=== PATIENT | female | born 1965 | race African-American/Black ===

== ENCOUNTER 2025-08-20 19:30 | Emergency (ER) | payer MEDICAID ==
[~2025-08-20] VITALS: Ht 157.5 cm; Wt 86.4 kg
[~2025-08-20 19:30] MED LIST: CARI-277 PO; MORP1TAB14 PO; NOR10T PO; ZOLP10TA PO
[2025-08-20 19:32] VITALS: BP 148/86; PULSE 104; RESP 16; TEMP 98.5; O2SAT 99
== END 2025-08-20 21:06 | disposition left against medical advice (07) ==
LOC: ER 19:30
DX: M79.602 Pain in left arm (principal); Z79.899 Other long term (current) drug therapy